=== PATIENT | female | born 1995 | race Caucasian/White ===

== ENCOUNTER 2017-12-12 17:20 | Emergency (ER) | payer OTHER ==
[~2017-12-12 17:20] MED LIST: BIRTH CONTROL; HYDR-4309 PO; IBUP600T22 PO; LOR5/325 PO; MEDR150D IM; PROM-110 PO
--- NOTE | 2017-12-12 17:31 | ER Report ---
History and Physical Time Seen By MD: 17:31 HPI/ROS CHIEF COMPLAINT: Pelvic pain HISTORY OF PRESENT ILLNESS: 22-year-old female patient presents to emergency room with complaint of pelvic pain. Patient states she has had this for months. She states this started approximately one year ago when she had an IUD placed. She states that she had the IUD removed and since then has been having problems with "infections in her uterus". She states that she has not taken any medication for this for the last couple months. She states she's been on several rounds of antibiotics. She is unsure what types of antibiotics she was on in the past. Patient states she is also had some discomfort with urinating recently. She states there is burning. She states that she has intermittent pain with intercourse. She states that she has not had any fevers, chills, nausea, vomiting or diarrhea. REVIEW OF SYSTEMS: Respiratory: No cough, no dyspnea. Cardiovascular: No chest pain, no palpitations. Gastrointestinal: As noted above Musculoskeletal: No back pain. Allergies: Coded Allergies: erythromycin base (Verified Allergy, Intermediate, HIVES, 08/02/15) Home Meds Active Scripts Ciprofloxacin Hcl (CIPROFLOXACIN HCL) 500 Mg Tablet, 500 MG PO Q12H, #14 TAB Prov:PAULIE SARABIA 12/12/17 Hydrocodone Bit/Acetaminophen (NORCO 5-325 TABLET) 1 Each Tablet, 1 EACH PO Q4H Y for PAIN, #12 Prov:JUSTO CABALLERO DO 08/02/15 Discontinued Reported Medications Medroxyprogesterone Acetate (DEPO-PROVERA) 150 Mg/1 Ml Disp.syrin, 150 MG IM [id number] 08/02/15 Discontinued Scripts Hydrocodone Bit/Acetaminophen (HYDROCODON-ACETAMINOPHEN 5-325) 1 Each Tablet, 1 EACH PO Q4-6H Y for PAIN, #12 TAB Prov:PAULIE SARABIA [employer]SF[employer]ATOR CHIEF 12/12/17 Promethazine Hcl (PROMETHAZINE HCL) 25 Mg Tablet, 25 MG PO Q4H Y for NAUSEA/ VOMITING, #14 TAB Prov:JUSTO CABALLERO DO 08/02/15 Past Medical/Surgical History Patient has a past medical history of PID. Patient has surgical history of tonsillectomy. Patient has a family medical history of cancer. Reviewed Nurses Notes: Yes Hx Smoking: Yes Constitutional Vital Sign - Last 24 Hours 3/12/12/17 12/12/17 17:27 19:30 20:00 Temp 98.1 Pulse 89 78 79 Resp 20 B/P (MAP) 114/86 110/72 (85) 108/73 (85) Pulse Ox 96 98 O2 Delivery Room Air Intake and Output 12/12/17 12/12/17 12/13/17 15:00 23:00 07:00 Intake Total 1000 ml Balance 1000 ml Physical Exam General Appearance: The patient is alert, has no immediate need for airway protection and no current signs of toxicity. ENT: Tympanic membranes are pearly-gomez, auditory canals are patent, mucous membranes are moist. Respiratory: Chest is non tender, lungs are clear to auscultation. Cardiac: regular rate and rhythm Gastrointestinal: Abdomen is soft and tender in the right upper quadrant, right lower quadrant and left lower quadrant, no masses, bowel sounds normal. Musculoskeletal: Neck: Neck is supple and non tender. Extremities have full range of motion and are non tender. Skin: No rashes or lesions. DIFFERENTIAL DIAGNOSIS: After history and physical exam differential diagnosis was considered for abdominal pain including but not limited to appendicitis, cholecystitis, gastritis and urinary tract infection. Included differential is pelvic inflammatory disease. Medical Decision Making Data Points Result Diagram: 12/12/17 1741 12/12/17 1741 Laboratory Hematology Test 12/12/17 00:00 12/12/17 17:27 12/12/17 17:41 12/12/17 18:13 Urine HCG, Qualitative Negative (NEGATIVE) Urine Color Yellow Urine Clarity Cloudy Urine pH 5.0 pH (4.8-9.5) Urine Specific [place] 1.020 Urine Protein Negative mg/dL (NEGATIVE) Urine Glucose (UA) Negative mg/dL (NEGATIVE) Urine Ketones Negative mg/dL (NEGATIVE) Urine Blood Small (NEGATIVE) Urine Nitrite Negative (NEGATIVE) Urine Bilirubin Negative (NEGATIVE) Urine Urobilinogen Negative mg/dL (0.2-1.9) Urine Leukocyte Esterase Large (NEGATIVE) Urine RBC 13 /HPF (0-2/HPF) Urine WBC 458 /HPF (0-5/HPF) Urine WBC Clumps Few /HPF Urine Squamous Epithelial Cells Many /LPF (</=FEW) Urine Transitional Epithelial Cells Many /LPF (NONE-FEW) Urine Bacteria Few /HPF (NONE-FEW) Urine Mucus Few /HPF (NONE-FEW) Red Blood Count 4.85 M/uL (4.17-5.56) Mean Corpuscular Volume 95.1 fL (80.0-96.0) Mean Corpuscular Hemoglobin 33.7 pg (26.0-33.0) Mean Corpuscular Hemoglobin Concent 35.4 g/dL (32.0-36.0) Red Cell Distribution Width 12.6 % (11.5-14.5) Mean Platelet Volume 8.1 fL (7.2-11.1) Neutrophils (%) (Auto) 64.3 % (39.4-72.5) Lymphocytes (%) (Auto) 27.1 % (17.6-49.6) Monocytes (%) (Auto) 6.8 % (4.1-12.4) Eosinophils (%) (Auto) 1.5 % (0.4-6.7) Basophils (%) (Auto) 0.3 % (0.3-1.4) Nucleated RBC Relative Count (auto) 0.0 /100WBC Neutrophils # (Auto) 6.6 K/uL (2.0-7.4) Lymphocytes # (Auto) 2.8 K/uL (1.3-3.6) Monocytes # (Auto) 0.7 K/uL (0.3-1.0) Eosinophils # (Auto) 0.2 K/uL (0.0-0.5) Basophils # (Auto) 0.0 K/uL (0.0-0.1) Nucleated RBC Absolute Count (auto) 0.00 K/uL Sodium Level 137 mmol/L (137-145) Potassium Level 4.1 mmol/L (3.5-5.0) Chloride Level 103 mmol/L (98-107) Carbon Dioxide Level 21 mmol/L (22-31) Blood Urea Nitrogen 19 mg/dl (7-18) Creatinine 1.00 mg/dl (0.52-1.04) Glomerular Filtration Rate Calc > 60.0 Random Glucose 81 mg/dl (75-110) Calcium Level 9.6 mg/dl (8.4-10.2) Total Bilirubin 0.7 mg/dl (0.2-1.3) Aspartate Amino Transf (AST/SGOT) 45 U/L (0-35) Alanine Aminotransferase (ALT/SGPT) 77 U/L (0-56) Alkaline Phosphatase 92 U/L (0-126) Total Protein 8.3 gm/dl (6.3-8.2) Albumin 4.7 g/dl (3.5-5.0) Human Chorionic Gonadotropin, Quant < 2 mIU/ml Chemistry Test 12/12/17 00:00 12/12/17 17:27 12/12/17 17:41 12/12/17 18:13 Urine HCG, Qualitative Negative (NEGATIVE) Urine Color Yellow Urine Clarity Cloudy Urine pH 5.0 pH (4.8-9.5) Urine Specific [place] 1.020 Urine Protein Negative mg/dL (NEGATIVE) Urine Glucose (UA) Negative mg/dL (NEGATIVE) Urine Ketones Negative mg/dL (NEGATIVE) Urine Blood Small (NEGATIVE) Urine Nitrite Negative (NEGATIVE) Urine Bilirubin Negative (NEGATIVE) Urine Urobilinogen Negative mg/dL (0.2-1.9) Urine Leukocyte Esterase Large (NEGATIVE) Urine RBC 13 /HPF (0-2/HPF) Urine WBC 458 /HPF (0-5/HPF) Urine WBC Clumps Few /HPF Urine Squamous Epithelial Cells Many /LPF (</=FEW) Urine Transitional Epithelial Cells Many /LPF (NONE-FEW) Urine Bacteria Few /HPF (NONE-FEW) Urine Mucus Few /HPF (NONE-FEW) White Blood Count 10.3 k/uL (4.5-11.0) Red Blood Count 4.85 M/uL (4.17-5.56) Hemoglobin 16.3 g/dL (12.0-16.0) Hematocrit 46.1 % (34.0-47.0) Mean Corpuscular Volume 95.1 fL (80.0-96.0) Mean Corpuscular Hemoglobin 33.7 pg (26.0-33.0) Mean Corpuscular Hemoglobin Concent 35.4 g/dL (32.0-36.0) Red Cell Distribution Width 12.6 % (11.5-14.5) Platelet Count 318 K/uL (150-450) Mean Platelet Volume 8.1 fL (7.2-11.1) Neutrophils (%) (Auto) 64.3 % (39.4-72.5) Lymphocytes (%) (Auto) 27.1 % (17.6-49.6) Monocytes (%) (Auto) 6.8 % (4.1-12.4) Eosinophils (%) (Auto) 1.5 % (0.4-6.7) Basophils (%) (Auto) 0.3 % (0.3-1.4) Nucleated RBC Relative Count (auto) 0.0 /100WBC Neutrophils # (Auto) 6.6 K/uL (2.0-7.4) Lymphocytes # (Auto) 2.8 K/uL (1.3-3.6) Monocytes # (Auto) 0.7 K/uL (0.3-1.0) Eosinophils # (Auto) 0.2 K/uL (0.0-0.5) Basophils # (Auto) 0.0 K/uL (0.0-0.1) Nucleated RBC Absolute Count (auto) 0.00 K/uL Glomerular Filtration Rate Calc > 60.0 Calcium Level 9.6 mg/dl (8.4-10.2) Total Bilirubin 0.7 mg/dl (0.2-1.3) Aspartate Amino Transf (AST/SGOT) 45 U/L (0-35) Alanine Aminotransferase (ALT/SGPT) 77 U/L (0-56) Alkaline Phosphatase 92 U/L (0-126) Total Protein 8.3 gm/dl (6.3-8.2) Albumin 4.7 g/dl (3.5-5.0) Human Chorionic Gonadotropin, Quant < 2 mIU/ml Urinalysis Test 12/12/17 00:00 12/12/17 17:27 Urine HCG, Qualitative Negative (NEGATIVE) Urine Color Yellow Urine Clarity Cloudy Urine pH 5.0 pH (4.8-9.5) Urine Specific [place] 1.020 Urine Protein Negative mg/dL (NEGATIVE) Urine Glucose (UA) Negative mg/dL (NEGATIVE) Urine Ketones Negative mg/dL (NEGATIVE) Urine Blood Small (NEGATIVE) Urine Nitrite Negative (NEGATIVE) Urine Bilirubin Negative (NEGATIVE) Urine Urobilinogen Negative mg/dL (0.2-1.9) Urine Leukocyte Esterase Large (NEGATIVE) Urine RBC 13 /HPF (0-2/HPF) Urine WBC 458 /HPF (0-5/HPF) Urine WBC Clumps Few /HPF Urine Squamous Epithelial Cells Many /LPF (</=FEW) Urine Transitional Epithelial Cells Many /LPF (NONE-FEW) Urine Bacteria Few /HPF (NONE-FEW) Urine Mucus Few /HPF (NONE-FEW) Microbiology Microbiology Date/Time Source Procedure Growth Status 12/12/17 18:13 Cervical Wet Prep - Final Complete EKG/Imaging Imaging ABDOMEN/PELVIS WITH CONTRAST HISTORY:persistent abdominal pain TECHNIQUE: CT abdomen and pelvis with intravenous contrast. Contiguous axial images of the abdomen and pelvis was performed from the lung bases to the symphysis pubis. One of the following dose optimization techniques was utilized in the performance of this exam: Automated exposure control; adjustment of the mA and/ or kV according to the patient's size; or use of an iterative reconstruction technique. Specific details can be referenced in the facility's radiology CT exam operational policy. CONTRAST: 75 cc of Isovue-370 COMPARISON: None. FINDINGS: Visualized lung bases: Negative. Hepatobiliary: Negative. Spleen: Negative. Adrenals: Negative. Kidneys/: There is an enhancing right ovarian follicle image 113 with surrounding free fluid suggestive of a ruptured right ovarian follicle possibly a source for pain. Pancreas: Negative. GI: Appendix is normal. Cecum is in the deep pelvis. No evidence for bowel obstruction or focal inflammation. Vessels/spaces/nodes: Negative. Bones/soft tissues: Negative. IMPRESSION: 1. Enhancing right ovarian follicle in the deep pelvis with surrounding free fluid suggests a ruptured right ovarian follicle which may account for patient' s pain. The study is otherwise unremarkable. 2. The appendix is visualized and is normal. Report Dictated By: Sukh Muñiz MD at 12/12/2017 7:27 PM Report E-Signed By: Sukh Muñiz MD at 12/12/2017 7:34 PM ED Course/Re-evaluation ED Course Patient was admitted to exam room, history and physical were obtained. Differential diagnoses were considered. On examination patient had tenderness over the right upper quadrant, right lower quadrant and left lower quadrant. Bowel sounds are active throughout. With her being treated numerous times for PID a pelvic exam was done. That was done as described below. A CBC, CMP, urinalysis, hCG, CT scan of abdomen and pelvis were done. HCG was negative, urinalysis showed large leukocyte esterase with 483 white cells per high-power field. CBC was unremarkable, CMP was normal as well. A wet prep was done which showed lots of white blood cells, no trichomonas, no yeast. A culture was obtained during the pelvic exam as well. As well as a chlamydia and gonorrhea test. CT scan of abdomen and pelvis was unremarkable, the appendix was normal, there does appear to be a ruptured right ovarian cyst. I discussed the findings with the patient. We will go ahead and treat her urinary tract infection with Cipro. We will also culture her urine. We will contact her if we need to change antibiotics. Due to her being on several rounds of antibiotics due to the PID, we will go ahead and wait for the results of the culture prior to treatment. I discussed this with the patient who verbalized understanding and agreement with plan. Pelvic exam: The vulva was normal no lesions. The vagina did not have significant discharge. The cervix was closed no bleeding and no purulent drainage. The uterus was normal size and tender. The adnexa had no masses and tender bilaterally, seem to be worse on the left. The exam was performed with a production manufacturing worker. Decision to Disposition Date: Dec 12, 2017 Decision to Disposition Time: 20:02 Depart Departure Latest Vital Signs Vital Signs Date Time Temp Pulse Resp B/P (MAP) Pulse Ox O2 Delivery O2 Flow Rate FiO2 12/12/17 20:00 79 108/73 (85) 12/12/17 19:30 98 12/12/17 17:27 98.1 20 Room Air Impression: Primary Impression: UTI (urinary tract infection) Additional Impression: Ruptured ovarian cyst Condition: Improved Disposition: HOME OR SELF-CARE New Scripts Ciprofloxacin Hcl (CIPROFLOXACIN HCL) 500 Mg Tablet 500 MG PO Q12H, #14 TAB Prov: CORNELLPAULIE VANCE 12/12/17 Patient Instructions: Urinary Tract Infection in Women (ED) Additional Instructions: Increase fluid intake. Get plenty of rest. Limit activity by pain. Follow up with your BRIQUETTE OPERATOR in the next week. Return to the ER if condition worsens. We are culturing your urine and the swab from the vagina and will have the results in the next 3 days. We will call if we need to change antibiotics. Problem Qualifiers Primary Impression: UTI (urinary tract infection) Urinary tract infection type: acute cystitis Hematuria presence: with hematuria Qualified Codes: N30.01 - Acute cystitis with hematuria PAULIE SARABIA Dec 12, 2017 17:31
[2017-12-12] MEDS ORDERED: NS(*) 0.9% 1000 ML BAG 1,000 ML IV ONE (17:39)
[2017-12-12 17:53] LABS: PLATELET COUNT, AUTOMATED 318 K/uL (150-450)
[2017-12-12] MEDS ORDERED: IOPAMIDOL 61% 75 ML INFUS BTL 75 ML ONE (17:55)
[2017-12-12] MEDS ORDERED: MORPHINE 2 MG/ML SYR IVP ONE (18:30)
--- NOTE | 2017-12-12 19:39 | RADIOLOGY IMAGING REPORT ---
FACILITY: [facility] [place] PATIENT NAME: Kiesha Cevallos : 1995 MR: [id number] V: [id number] EXAM DATE: ORDERING PHYSICIAN: PAULIE SARABIA TECHNOLOGIST: Location: [facility] Patient: Kiesha Cevallos : 1995 Visit/Account:[id number] Date of Sevice: 12/12/2017 ABDOMEN/PELVIS WITH CONTRAST HISTORY:persistent abdominal pain TECHNIQUE: CT abdomen and pelvis with intravenous contrast. Contiguous axial images of the abdomen and pelvis was performed from the lung bases to the symphysis pubis. One of the following dose optimization techniques was utilized in the performance of this exam: Autom ated exposure control; adjustment of the mA and/or kV according to the patient's size; or use of an i terative reconstruction technique. Specific details can be referenced in the facility's radiology C T exam operational policy. CONTRAST: 75 cc of Isovue-370 COMPARISON: None. FINDINGS: Visualized lung bases: Negative. Hepatobiliary: Negative. Spleen: Negative. Adrenals: Negative. Kidneys/: There is an enhancing right ovarian follicle image 113 with surrounding free fluid sugge stive of a ruptured right ovarian follicle possibly a source for pain. Pancreas: Negative. GI: Appendix is normal. Cecum is in the deep pelvis. No evidence for bowel obstruction or focal infl ammation. Vessels/spaces/nodes: Negative. Bones/soft tissues: Negative. IMPRESSION: 1. Enhancing right ovarian follicle in the deep pelvis with surrounding free fluid suggests a ruptur ed right ovarian follicle which may account for patient's pain. The study is otherwise unremarkable. 2. The appendix is visualized and is normal. Report Dictated By: Sukh Muñiz MD at 12/12/2017 7:27 PM Report E-Signed By: Sukh Muñiz MD at 12/12/2017 7:34 PM [id number]
[2017-12-12] MEDS ORDERED: HYDR-385 PO (19:59)
[2017-12-12] MEDS ORDERED: CIPR-214 PO (19:59)
[2017-12-12 20:00] VITALS: BP 108/73
== END 2017-12-12 20:09 | disposition home or self-care (01) ==
LOC: ER 17:29
DX: N30.01 Acute cystitis with hematuria (principal); N83.201 Unspecified ovarian cyst, right side
CPT/HCPCS: 74177; 81001; 81025; 84702; 85025; 87070; 87088; 87210; 87491; 87591; 96361; 96374; 99284; J2270; J7030; Q9967; 82040; 82247; 82310; 82374; 82435; 82565; 82947; 84075; 84132; 84155; 84295; 84450; 84460; 84520; 87077; 87186